=== PATIENT | female | born 1970 | race African-American/Black ===

== ENCOUNTER 2024-02-13 12:06 | Day surgery (SDC) | payer OTHER ==
[2024-02-08 16:31] VITALS: BMI 26.2
[2024-02-13 12:45] VITALS: RESP 18
[2024-02-13 15:15] VITALS: BP 148/92; PULSE 76; TEMP 97.3
== END 2024-02-13 14:15 | disposition home or self-care (01) ==
LOC: FASU-ENDO 12:06
PROVIDERS: ATTEND Internal Medicine Gastroenterology
PROC: 0DB68ZX Excision of Stomach, Via Natural or Artificial Opening Endoscopic, Diagnostic (ICD-10-PCS; 2024-02-13)
PROC: 0DB48ZX Excision of Esophagogastric Junction, Via Natural or Artificial Opening Endoscopic, Diagnostic (ICD-10-PCS; 2024-02-13)
PROC: 0DB98ZX Excision of Duodenum, Via Natural or Artificial Opening Endoscopic, Diagnostic (ICD-10-PCS; principal; 2024-02-13 13:19)
DX: K44.9 Diaphragmatic hernia without obstruction or gangrene (principal); K31.9 Disease of stomach and duodenum, unspecified; K20.90 Esophagitis, unspecified without bleeding; R10.13 Epigastric pain
CPT/HCPCS: 88305-TC; 88342-TC

== ENCOUNTER 2024-04-23 10:22 | Day surgery (SDC) | payer OTHER ==
[2024-04-21 16:13] VITALS: BMI 25.6
[2024-04-23] MEDS ORDERED: PROPOFOL 120 ML ONE (11:02)
[2024-04-23 11:38] VITALS: RESP 18; TEMP 98
[2024-04-23 11:53] VITALS: BP 121/79; PULSE 79
== END 2024-04-23 12:10 | disposition home or self-care (01) ==
LOC: FASU-ENDO 10:22
PROVIDERS: ATTEND Internal Medicine Gastroenterology
PROC: 0DBP8ZX Excision of Rectum, Via Natural or Artificial Opening Endoscopic, Diagnostic (ICD-10-PCS; principal; 2024-04-23 11:04)
DX: Z12.11 Encounter for screening for malignant neoplasm of colon (principal); D12.8 Benign neoplasm of rectum; K64.1 Second degree hemorrhoids; K64.8 Other hemorrhoids; K57.30 Diverticulosis of large intestine without perforation or abscess without bleeding; Z87.19 Personal history of other diseases of the digestive system
CPT/HCPCS: 88305-TC